=== PATIENT | male | born 1960 | race African-American/Black ===

== ENCOUNTER 2016-02-14 11:30 | Emergency (ER) | payer SELFPAY ==
[2016-02-14] MEDS ORDERED: METOCLOPRAMIDE 10 MG/2 ML VIAL ONE (12:01)
[2016-02-14] MEDS ORDERED: DIPHENHYDRAMINE 50 MG/ML VIAL ONE (12:01)
== END 2016-02-14 13:51 | disposition home or self-care (01) ==
LOC: ER 11:30
CPT/HCPCS: 96374; 96375